=== PATIENT | female | born 1960 | race Caucasian/White ===

== ENCOUNTER 2024-08-31 10:25 | Emergency (ER) | payer OTHER, MEDICARE, SELFPAY ==
[2024-08-31 10:57] VITALS: BP 129/80
[2024-08-31 11:29] LABS: % Basophils 0.5 % (0-2); % Eosinophils 0.7 % (0-6); % Immature Granulocytes 0.3 % (0-0.5); % Lymphocytes 15.3 % (20.5-51.1); % Monocytes 6.9 % (1.7-9.3); % Neutrophils 76.3 % (42.2-75.2); Absolute Basophils 0.1 10^3/uL (0-0.2); Absolute Eosinophils 0.1 10^3/uL (0-0.7); Absolute Lymphocytes 1.6 10^3/uL (1.2-3.4); Absolute Monocytes 0.7 10^3/uL (0.1-0.6); Absolute Neutrophils 8.1 10^3/uL (1.4-6.5); Hematocrit 37.3 % (37.0-47.0); Hemoglobin 12.3 g/dL (12.0-16.0); Mean Corpuscular Hgb 29.9 pg (27.0-31.0); Mean Corpuscular Volume 90.5 fL (81.0-99.0); Mean Platelet Volume 10.4 fL (7.4-10.4); Nucleated Red Blood Cells % 0 %; Platelet Count 237 10^3/uL (130-400); Red Blood Cell Count 4.12 10^6/uL (4.20-5.40); Red Cell Dist. Width 13.2 % (11.5-14.5); White Blood Cell Count 10.7 10^3/uL (4.8-10.8)
[2024-08-31 11:44] LABS: ALT (SGPT) 27 U/L (0-35); AST (SGOT) 28 U/L (14-36); Albumin 4.2 g/dl (3.5-5.0); Alkaline Phosphatase 87 U/L (38-126); Blood Urea Nitrogen 40 mg/dl (7-17); Calcium 9.6 mg/dl (8.4-10.2); Carbon Dioxide 22 mmol/L (22-30); Chloride 108 mmol/L (98-107); Glucose 115 mg/dl (70-99); Potassium 4.7 mmol/L (3.5-5.1); Sodium 142 mmol/L (135-145); Total Bilirubin 0.2 mg/dl (0.2-1.3); Total Protein 6.4 g/dl (6.3-8.2); eGFR 38.43
--- NOTE | 2024-08-31 11:48 | ED.GENMED ---
History of Present Illness
General
Chief Complaint: Abdominal Symptoms
Source: patient
Time Seen by Provider: 08/31/24 11:37
History of Present Illness
History of Present Illness:
64-year-old female with past medical history of asthma/chronic bronchitis, hyperlipidemia, GERD, schizophrenia/depression presenting to the emergency department for evaluation after she started to feel little bit nauseous earlier this morning, had a
coughing spell and then proceeded to cough/vomit up clear sputum like substance that was intermixed with small flecks of blood and continues to have some mild upper abdominal discomfort/soreness. Patient denies any history of similar but does note
a history of reflux for which she takes famotidine. Patient states that she is on a daily 325 mg of aspirin but she is denying any history of CVA, known coronary artery disease or bleeding/clotting disorders. Patient currently denying any chest
pain, shortness of breath, palpitations, diarrhea or bowel changes, melena or hematochezia, urinary symptoms or any other concerns. Social history was noted for drinking an alcoholic beverage 3 times a week stating she will often have just 1
beverage during those days. No known history of varices. She does reports she had an endoscopy maybe about 10 years or so ago due to a hiatal hernia and reflux.
Past History
Past History
ED Past Medical History: CHF, COPD, Hypercholesterolemia, Renal failure, Psychiatric (Schizophrenia) and Other (Orthostatic hypotension)
ED Past Surgical History: Appendectomy and Orthopedic
Social History
Tobacco: Former smoker
Alcohol: Occasional
Drug: None
Personal:
Living: with family
Family History
Family History: Other (father with renal failure and diabetes, mother with diabetes)
Review of Systems
Review of Systems
All Other Systems: ROS reviewed and negative except as documented in HPI and ROS
Phy Exam
Physical Exam
Physical Exam:
GENERAL: Alert , in no apparent distress
EYE: clear conjunctiva b/l
HEAD: NCAT
ENT: o/p clr, mmm.
CARDIAC: Regular rate and rhythm .
LUNGS: Clear breath sounds bilaterally, no acute respiratory distress, no wheezes/rales/rhonchi
ABDOMEN: Soft, mild generalized upper abdominal tenderness to palpation, no r/g, no cvat, negative Sharma sign, no tenderness at McBurney's point
NEUROLOGICAL: Alert and oriented
SKIN: Warm and dry, skin intact.
MUSCULOSKELETAL: No edema, well perfused.
PSYCH: Normal and appropriate interaction.
Scores
Heart Failure Risk
Heart Failure Risk Score: Not Applicable
Heart Score for Chest Pain Patients
STEMI patient?: Not applicable
Withdrawal Assessment of Alcohol
Withdrawal Assessment Completed?: Not applicable
Course
Orders/Labs/Results
Orders:
Orders
08/31/24 11:05
Complete Blood Count/With Diff Urgent
Comprehensive Metabolic Panel Urgent
08/31/24 11:47
0.9% Sodium Chloride 1000 ml [Nss] 1,000 ml IV BOLUS
Famotidine [Pepcid] 20 mg IV NOW STA
Ondansetron Injectable [Zofran] 4 mg IV NOW STA
08/31/24 11:48
CR Chest - 2 Views Urgent
Comment:
Reason For Exam: vomiting/cough, small hematemesis
08/31/24 12:20
Protime/PTT Urgent
Comment: PREVIOUS QNS
Abnormal Lab Results
08/31/24
11:05
RBC 4.12 L 10^6/uL
(4.20-5.40)
Absolute Neuts (auto) 8.1 H 10^3/uL
(1.4-6.5)
Absolute Monos (auto) 0.7 H 10^3/uL
(0.1-0.6)
Neutrophils % 76.3 H %
(42.2-75.2)
Lymphocytes % 15.3 L %
(20.5-51.1)
Chloride 108 H mmol/L
(98-107)
BUN 40 H mg/dl
(7-17)
Creatinine 1.5 H mg/dL
(0.6-1.0)
Glucose 115 H mg/dl
(70-99)
08/31/24 11:05
08/31/24 11:05
Vital Signs
Initial and Last Documented VS:
Initial Vital Signs
Temp Pulse Resp BP Pulse Ox
97.9 F 90 18 129/80 98
08/31/24 10:57 08/31/24 10:57 08/31/24 10:57 08/31/24 10:57 08/31/24 10:57
Last Documented Vital Signs
Temp Pulse Resp BP Pulse Ox
97.9 F 88 16 145/83 98
08/31/24 10:57 08/31/24 13:42 08/31/24 13:42 08/31/24 13:42 08/31/24 13:42
MDM/Problems Addressed
Differential Diagnosis Includes:
GERD/gastritis, alcoholic gastritis, less concern for varices but certainly considered given patient's drinking history, infectious etiology such as pneumonia given patient's coughing, Boerhaave's, Anamika-Hill tear, anemia
MDM/Problems Addressed:
64-year-old female presenting to the ER for evaluation after she started feeling a little nauseous earlier today, had 1 episode of possible coughing/emesis and noted some small flecks of blood. Since that time no further vomiting. Denies any
melena or hematochezia. Does take a daily 325 mg of aspirin however unclear as to why patient is on this but states her secondary spanish teacher told her to take this but has no known history of coronary artery disease, stroke or other bleeding/clotting
disorder. Will check labs. Zofran, Pepcid and IV fluids ordered. Lab work was started upon arrival. Patient otherwise currently hemodynamically stable.
*Radiology
Radiology exam reviewed: radiology read reviewed
*Pulse Oximetry
Patient hypoxic: no
*Lyft Driver Interpretation
Rate: normal
Rhythm: sinus
*Critical Care Note
Total Time (30-74mins, 75-104mins- exclusive of procedures): Not Applicable
Data Reviewed
Review of Other/Old Records Reveals: Labs and Records
Source: patient and records
Patient Management
Escalation/DeEscalation of care consider admission/obs:
Patient remains hemodynamically stable and in no acute distress. No further episodes of coughing/vomiting here. Patient's labs noted to be unremarkable with no leukocytosis, no signs of anemia and stable chronic kidney disease. Patient's chest
x-ray also within normal limits. Possibility of GERD/gastritis for diagnosis. We did discuss brat diet as well as return precautions to the ER for any further episodes of hematemesis or any signs of potential lower GI bleeding including dark/black
stools or melena. Patient will follow-up with primary care provider. Aware of return precautions to the ER.
ED Attending Note
-
Portions of this chart may have been created with voice recognition software.� Occasional wrong word or��sound alike� substitutions may have occurred due to the inherent limitations of voice recognition software.
Discharge Plan
Departure
Patient Disposition: Home (Routine Discharge)
Date of Disposition: 08/31/24
Time of Disposition: 14:08
Patient with high blood pressure during this ER visit?: No
Discharge Problem:
Hematemesis
Instructions: Nausea and vomiting in adults
Prescriptions:
New
ondansetron 4 mg tablet,disintegrating
4 mg PO Q8H PRN (Reason: nausea and vomiting) Qty: 8 0RF
No Action
aspirin 325 MG tablet
325 mg PO DAILY
oxcarbazepine 300 MG tablet
600 mg PO HS
simvastatin 40 MG tablet
40 mg PO DAILY
citalopram 20 MG tablet
20 mg PO DAILY
montelukast 10 MG tablet
10 mg PO HS
albuterol sulfate 1 PUFF HFA aerosol inhaler
2 puff inhalation R QID
fluticasone propion-salmeterol [Advair Diskus] 1 EACH blister with device
1 ea IH BID
famotidine 20 MG tablet
20 mg PO DAILY
midodrine 5 MG tablet
5 mg PO TID@0800,1300,1800
ipratropium-albuterol 3 ML solution for nebulization
3 ml inhalation QIDPRN PRN (Reason: shortness of breath) Qty: 120 0RF
acetaminophen [Tylenol Extra Strength] 500 MG tablet
1,000 mg PO Q8
risperidone 2 MG tablet
2 mg PO BID
meclizine 25 MG tablet
25 mg PO PRN PRN (Reason: pain)
conjugated estrogens [Premarin] 0.625 MG tablet
0.625 mg .Route WEEKLY
benztropine 1 MG tablet
1 mg PO DAILY
oxycodone 5 MG tablet
5 mg PO PRN PRN (Reason: pain)
Montelukast Sodium 10 MG Tablet
10 mg PO HS
Zyrtec
10 mg PO DAILY
gabapentin 100 mg capsule
100 mg PO TID Qty: 30 0RF
Referrals:
Karin Coleman CRNP [Family Provider] -
Interventions
Interventions:
*Risk Screen - Suicide Last Done: 08/31/24 10:54
*General Assessment Last Done: 08/31/24 10:54
*ED COVID-19 Vaccine History Last Done: 08/31/24 10:54
*Nursing Disposition Last Done: 08/31/24 14:33
KP-Qammuy-Pdljqfsueg Assessment Last Done: 08/31/24 12:15
Discharge Date and Time
Discharge Date/Time: 08/31/24 14:33
Print Language: UZBEK
[2024-08-31 12:15] VITALS: BMI 25.2
[2024-08-31] MEDS: PEPCID 20 MG IV (12:19)
[2024-08-31] MEDS: NSS 1000 IV (12:19)
[2024-08-31] MEDS: ZOFRAN 4 MG IV (12:19)
[2024-08-31 12:38] LABS: INR 1.04; PT 13.9 Sec (11.4-14.6)
[2024-08-31 12:39] LABS: APTT 25.8 Sec (23.4-35.0)
[2024-08-31 13:42] VITALS: BP 145/83
== END 2024-08-31 14:33 | disposition home or self-care (01) ==
LOC: EMR 10:25
PROVIDERS: Emergency Medicine; EMERGENCY PHYSICIAN Emergency Medicine; FAMILY PHYSICIAN Nurse Practitioner
DX: K92.0 Hematemesis (principal); J44.89 Other specified chronic obstructive pulmonary disease; E78.00 Pure hypercholesterolemia, unspecified; I50.9 Heart failure, unspecified; K21.9 Gastro-esophageal reflux disease without esophagitis; N18.9 Chronic kidney disease, unspecified; Z87.891 Personal history of nicotine dependence; Z79.899 Other long term (current) drug therapy
CPT/HCPCS: 99284; 96374; 96375; 96361; 71046; 80053; 85025; 85610; 85730

== ENCOUNTER 2025-05-05 17:59 | Observation (INO) | payer OTHER, MEDICARE, SELFPAY ==
[2025-05-05] VITALS (8 sets, daily range): BP systolic 103–121; BP diastolic 61–74; BMI 22.0; BMI 21.8
--- NOTE | 2025-05-05 15:27 | ED.GENMED ---
History of Present Illness
General
Chief Complaint: Change in Mental Status
Source: patient and spouse
Exam Limitations: none
Time Seen by Provider: 05/05/25 15:20
History of Present Illness
History of Present Illness:
See MDM
Past History
Past History
ED Past Medical History: CHF, COPD, Hypercholesterolemia, Renal failure, Psychiatric (Schizophrenia) and Other (Orthostatic hypotension)
ED Past Surgical History: Appendectomy and Orthopedic
Social History
Tobacco: Former smoker
Alcohol: Occasional
Drug: None
Personal:
Living: with family
Family History
Family History: Other (father with renal failure and diabetes, mother with diabetes)
Phy Exam
Physical Exam
Physical Exam:
See MDM
NIH Stroke Score
Level of Consciousness: 0 - Alert
LOC questions: 0-Answers both correctly
LOC Commands: 0-Performs both correctly
Best Gaze: 0-Normal
Visual Reza: 0=Normal, no visual loss
Facial palsy: 0=Normal, symmetrical
Motor - Right Arm: 0=No drift 10 seconds
Motor - Left Arm: 0=No drift 10 seconds
Motor - Right Le-No drift 5 seconds
Motor - Left Le-No drift 5 seconds
Limb Ataxia: 0-Absent
Sensation: 0-Normal
Best Language: 0-No aphasia
Dysarthria: 0-Normal
Extinction and Inattention: 0-No abnormality
Total Score:: 0
Sepsis
Sepsis Screening
Sepsis Assessment: Sepsis Ruled Out
Sepsis Screen
Sepsis Screen: Sepsis Ruled Out
Date: 05/05/25
Time: 16:23
Course
Orders/Labs/Results
Orders:
Orders
05/05/25 15:26
CT Head W/o Iv Contrast Urgent
Comment:
Reason For Exam: espresive aphasia
0.9% Sodium Chloride 1000 ml [Nss] 1,000 ml IV BOLUS
Acetaminophen [Tylenol] 1,000 mg PO NOW STA
CR Chest - 2 Views Urgent
Comment:
Reason For Exam: fever and cough
05/05/25 15:37
CBC/With Diff [Complete Blood Count/With Diff] Urgent
COVID-19 Antigen Urgent
Source: Nasal Swab
Comprehensive Metabolic Panel Urgent
Lactic Acid Q4H
Comment: CANCEL 2nd LACTIC ACID IF 1st LACTIC ACID IS LESS THAN 2
Blood Culture Q30M
GINA Source: Blood/Venous
Specimen Description:
Influenza A+B Rapid Molecular Urgent
GINA Source: Nasal Swab
Specimen Description:
05/05/25 15:55
Urinalysis Reflex To Culture Urgent
Date Specimen was Collected: 05/05/25
Time Specimen was Collected: 15:48
Urine Microscopic Reflex Cult Urgent
Blood Culture Q30M
GINA Source: Blood/Venous
Specimen Description:
Urine Culture Urgent
GINA Source: U
Specimen Description:
Date Specimen was Collected: 05/05/25
Time Specimen was Collected: 15:48
05/05/25 19:30
Lactic Acid Q4H
Comment: CANCEL 2nd LACTIC ACID IF 1st LACTIC ACID IS LESS THAN 2
Abnormal Lab Results
05/05/25 05/05/25
15:37 15:55
WBC 12.7 H 10^3/uL
(4.8-10.8)
RBC 3.91 L 10^6/uL
(4.20-5.40)
Hgb 11.5 L g/dL
(12.0-16.0)
Hct 35.2 L %
(37.0-47.0)
MCHC 32.7 L g/dL
(33.0-37.0)
MPV 10.6 H fL
(7.4-10.4)
Absolute Neuts (auto) 10.3 H 10^3/uL
(1.4-6.5)
Absolute Monos (auto) 1.2 H 10^3/uL
(0.1-0.6)
Neutrophils % 81.0 H %
(42.2-75.2)
Lymphocytes % 9.4 L %
(20.5-51.1)
BUN 24 H mg/dl
(7-17)
Creatinine 1.6 H mg/dL
(0.6-1.0)
Glucose 107 H mg/dl
(70-99)
Total Protein 6.2 L g/dl
(6.3-8.2)
Urine Ketones 1+ A
(Negative)
Ur Occult Blood Reflex 1+ A
(Negative)
Urine Bilirubin 1+ A
(Negative)
Leukocyte Esterase Rfl 1+ A
(Negative)
Urine WBC (Reflex) 16-20 A /HPF
(0-5)
Urine Bacteria (Reflex) Few A
(Negative)
Urine Albumin (Reflex) 3+ A
(Neg - Trace)
SARS-CoV-2 Antigen Positive A
(Negative)
05/05/25 15:37
05/05/25 15:37
Vital Signs
Initial and Last Documented VS:
Initial Vital Signs
Temp Pulse Resp BP Pulse Ox
100 F 101 16 103/66 93
05/05/25 14:06 05/05/25 14:06 05/05/25 14:06 05/05/25 14:06 05/05/25 14:06
Last Documented Vital Signs
Temp Pulse Resp BP Pulse Ox
99.9 F 91 25 116/70 97
05/05/25 15:13 05/05/25 16:00 05/05/25 16:00 05/05/25 16:00 05/05/25 16:00
MDM/Problems Addressed
Differential Diagnosis Includes:
Note:
CHIEF COMPLAINT(S)
The patient reports feeling out of it, with symptoms of confusion, weakness, fever, and difficulty speaking.
HISTORY OF PRESENT ILLNESS
The patient is a 65-year-old female experiencing feelings of confusion and weakness that began in the middle of the night. She noticed the symptoms upon waking and needed to go to the bathroom, which she normally does not have difficulty with. She
reports that both confusion and weakness are new developments. The patient also reports a mild cough and has experienced a fever, with temperatures as high as 101�F, starting yesterday. She has taken acetaminophen (Tylenol) twice today to manage the
fever.
This morning, the patient started having trouble speaking and getting words out. This difficulty was more apparent and easier to identify this morning, around 8 or 9 AM. Although there has been slight improvement, there is still concern over these
symptoms. The patient denies any recent changes in urinary frequency or any issues while urinating.
The patient has a history of chronic kidney disease, which is considered in the management plan to avoid further renal damage from potential dehydration due to fever.
PAST MEDICAL AND SURIGICAL HISTORY
The patient has a history of chronic kidney disease.
PHYSICAL EXAM
General: Alert, no acute distress.
Skin: Warm
Head: Normocephalic, atraumatic
Neck: Appears supple, trachea midline.
Eyes, Ears, Nose, Mouth, and Throat: Dry mucous membranes. Posterior pharynx clear
Cardiovascular: No signs of cyanosis. Regular rate and rhythm
Respiratory: Respirations are non-labored. Lungs appear clear
Abdomen: Non-distended and nontender
Musculoskeletal: No deformities
Neurological: No focal neurological deficit observed.
Psychiatric: Cooperative, appropriate mood and affect.
PLAN
- Initiate blood work including lactate levels and blood cultures.
- Perform imaging studies including a CT scan of the head to rule out cerebrovascular accidents.
- Monitor and manage chronic kidney disease, especially in light of current fever and potential dehydration risks.
- Consider overnight observation to further assess and manage fever and symptoms.
- Administer IV fluids as needed to address dehydration.
- Re-evaluation after blood work and imaging to determine further management.
DIFFERENTIAL DIAGNOSIS
The Differential Diagnosis includes, in no particular order and is not limited to:
1. Transient Ischemic Attack
2. Stroke
3. Urinary Tract Infection
4. Pneumonia
5. Influenza
6. COVID-19
7. Dehydration
8. Sepsis
9. Acute Renal Failure
10. Delirium
05/05/25 - 16:00
Patient tested positive for COVID-19, correlating with current symptoms.
SUMMARY OF ENCOUNTER
The patient, a 65-year-old female, presented to the emergency department with symptoms of confusion, weakness, fever, and difficulty speaking. She reported these symptoms began in the middle of the night, including a fever of 101�F, mild cough, and
new onset difficulty with speech and weakness. She also indicated feeling 'out of it.' Blood work, including lactate levels and blood cultures, was initiated, and a CT scan of the head was performed to rule out cerebrovascular accidents. Chest X-ray
and COVID-19 testing were also conducted. The patient was administered IV fluids due to potential dehydration and chronic kidney disease.
DISPOSITION
Admit
ASSESSMENT
The patient tested positive for COVID-19, which correlates with her current symptoms of fever, cough, and weakness. The absence of acute intracranial pathology on CT scan and a clear chest x-ray largely rules out pneumonia and stroke as primary
concerns. Continued monitoring and treatment in a hospital setting for [id number] symptoms and dehydration risk are warranted.
PLAN
The patient will be admitted for IV fluids and further workup to manage her symptoms, particularly due to her inability to properly tolerate oral intake and manage fever. Monitoring of kidney function and symptoms of dehydration will be a priority
due to her chronic kidney disease.
INDEPENDENT REVIEW OF LABS AND INTERPRETATION OF TESTS
- My independent review of the CT head is negative for acute abnormalities.
- My independent review of chest x-ray is that it appears clear.
- My independent review indicates a positive COVID-19 test result.
MEDICATION RECONCILIATION
- The patient received IV fluids in the emergency department to address dehydration.
MEDICAL DECISION MAKING
- Complexity of Data Reviewed: Chronic conditions affecting care include chronic kidney disease. Differential diagnosis includes transient ischemic attack, stroke, urinary tract infection, pneumonia, influenza, COVID-19, dehydration, sepsis, acute
renal failure, and delirium.
- Data:
- Category 1: Tests ordered and reviewed include blood work (lactate levels, blood cultures) and imaging (CT head, chest x-ray).
- Category 2: N/A
- Category 3: Discussion of management with admitting hospital staff, leading to the decision for patient admission.
DIAGNOSIS
- COVID-19 Infection: U07.1
- Dehydration: E86.0
*Pulse Oximetry
SaO2: 97
Oxygen Mode of Delivery: Room air
Patient hypoxic: no
*Critical Care Note
Total Time (30-74mins, 75-104mins- exclusive of procedures): Not Applicable
ED Attending Note
-
Portions of this chart may have been created with voice recognition software.� Occasional wrong word or��sound alike� substitutions may have occurred due to the inherent limitations of voice recognition software.
Discharge Plan
Departure
Patient Disposition: Admit
Date of Disposition: 05/05/25
Time of Disposition: 17:23
Admit to: Med/Surg
Presentation/result/management discussed w/ accepting MD/DO: Hospitalist
Discharge Problem:
COVID, Acute dehydration
Prescriptions:
No Action
aspirin 325 MG tablet
325 mg PO DAILY
oxcarbazepine 300 MG tablet
600 mg PO HS
simvastatin 40 MG tablet
40 mg PO DAILY
citalopram 20 MG tablet
20 mg PO DAILY
montelukast 10 MG tablet
10 mg PO HS
albuterol sulfate 1 PUFF HFA aerosol inhaler
2 puff inhalation R QID
fluticasone propion-salmeterol [Advair Diskus] 1 EACH blister with device
1 ea IH BID
famotidine 20 MG tablet
20 mg PO DAILY
midodrine 5 MG tablet
5 mg PO TID@0800,1300,1800
ipratropium-albuterol 3 ML solution for nebulization
3 ml inhalation QIDPRN PRN (Reason: shortness of breath) Qty: 120 0RF
acetaminophen [Tylenol Extra Strength] 500 MG tablet
1,000 mg PO Q8
risperidone 2 MG tablet
2 mg PO BID
meclizine 25 MG tablet
25 mg PO PRN PRN (Reason: pain)
conjugated estrogens [Premarin] 0.625 MG tablet
0.625 mg .Route WEEKLY
benztropine 1 MG tablet
1 mg PO DAILY
oxycodone 5 MG tablet
5 mg PO PRN PRN (Reason: pain)
Montelukast Sodium 10 MG Tablet
10 mg PO HS
Zyrtec
10 mg PO DAILY
gabapentin 100 mg capsule
100 mg PO TID Qty: 30 0RF
ondansetron 4 mg tablet,disintegrating
4 mg PO Q8H PRN (Reason: nausea and vomiting) Qty: 8 0RF
Referrals:
Karin Coleman CRNP [Family Provider, General]
Interventions
Interventions:
*Risk Screen - Suicide Last Done: 05/05/25 14:06
*General Assessment Last Done: 05/05/25 15:13
*Neglect/Abuse Screening Last Done: 05/05/25 14:06
*ED- Fall Risk Assessment Last Done: 05/05/25 15:13
*ED COVID-19 Vaccine History Last Done: 05/05/25 15:13
ED- Pulmonary Assessment Last Done: 05/05/25 16:05
ED- Neurological Assessment Last Done: 05/05/25 15:13
ED Swallowing Screen Last Done: 05/05/25 15:19
Discharge Date and Time
Print Language: PORTUGUESE
[2025-05-05] MEDS: NSS 1000 IV ×2 (15:48→19:56)
[2025-05-05 15:49] LABS: Hematocrit 35.2 % (37.0-47.0); Hemoglobin 11.5 g/dL (12.0-16.0); Mean Corp Hgb Conc. 32.7 g/dL (33.0-37.0); Mean Corpuscular Volume 90.0 fL (81.0-99.0); Nucleated Red Blood Cells % 0 %; Platelet Count 198 10^3/uL (130-400); Red Cell Dist. Width 13.2 % (11.5-14.5)
[2025-05-05 15:56] LABS: COVID-19 Antigen Positive (Negative)
[2025-05-05] MEDS: TYLENOL 1000 MG PO (15:59)
[2025-05-05 16:10] LABS: Urine Character Clear (Clear)
[2025-05-05 16:12] LABS: ALT (SGPT) 30 U/L (0-35); AST (SGOT) 32 U/L (14-36); Albumin 4.0 g/dl (3.5-5.0); Alkaline Phosphatase 83 U/L (38-126); Blood Urea Nitrogen 24 mg/dl (7-17); Calcium 9.0 mg/dl (8.4-10.2); Carbon Dioxide 28 mmol/L (22-30); Chloride 104 mmol/L (98-107); Estimated Creatinine Clearance 36 ml/min; Glucose 107 mg/dl (70-99); Potassium 3.9 mmol/L (3.5-5.1); Sodium 138 mmol/L (135-145); Total Protein 6.2 g/dl (6.3-8.2); eGFR 35.35
[2025-05-05 16:25] LABS: Urine Squamous Cell 26-30 /LPF (Few)
[2025-05-05 16:26] LABS: Urine Red Blood Cell 0-2 /HPF (0-2); Urine Urothelial Cell 0-2 /LPF (FEW); Urine White Cell 16-20 /HPF (0-5)
--- NOTE | 2025-05-05 17:30 | HPS.HSE ---
Family Physician
-
Family Physician: VIOLETTA Klein
Chief Complaint
-
Mental status changes and fever
History of Present Illness
Patient 65-year-old female with multiple comorbidities came into the hospital mental status changes. Patient has not been feeling well for the last couple of days and last night she started having confusion and generalized weakness. She has been
having some dry cough and some shortness of breath. She had a fever up to 101 Fahrenheit. She has some trouble with getting words out earlier this morning around 8 AM this morning but feels better now. Denies focal weakness or paresthesias at the
moment. Denies seizure-like activity. Denies chest pain. Denies dysuria urgency or frequency. Denies nausea vomiting or diarrhea. In the ER she was noted to be COVID-[address] of the head unremarkable. She has some leukocytosis and
worsening of creatinine and she was referred to hospitalist service for further evaluation.
Medical History
Past Medical History
Past Medical History: Reports Other (Hypertension, hyperlipidemia, CKD, schizophrenia, orthostatic hypotension, COPD.)
Past Surgical History: Reports None
Social History
Tobacco: Former Smoker
Alcohol: None
Drug: None
Family History
Family History: Not pertinent
Allergies / Home Medications
Allergies reflects when Allergies were last updated in [facility].
Home Medications with original date entered in [facility]
Allergy/Medication List:
Allergies
Allergy/AdvReac Type Severity Reaction Status Date / Time
fluoxetine (From Prozac) Allergy Vomiting Verified 05/05/25 14:03
scallops Allergy Unknown Verified 05/05/25 14:03
Home Medications
albuterol sulfate 90 mcg/actuation aerosol inhaler 2 puff inhalation R QID Lung/breathing issues 06/13/18
aspirin 325 mg tablet 325 mg PO DAILY Blood clot prevention/tx 06/13/18
citalopram 20 mg tablet 20 mg PO DAILY Depression 06/13/18
montelukast 10 mg tablet 10 mg PO HS Allergies 06/13/18
oxcarbazepine 300 mg tablet 600 mg PO HS Seizures 06/13/18
simvastatin 40 mg tablet 40 mg PO DAILY High cholesterol 06/13/18
famotidine 20 mg tablet 20 mg PO DAILY Gastrointestinal issue 10/18/18
fluticasone 250 mcg-salmeterol 50 mcg/dose blistr powdr for inhalation (Advair Diskus) 1 ea IH BID Lung/breathing issues 10/18/18
midodrine 5 mg tablet 5 mg PO TID@0800,1300,1800 Blood pressure 10/18/18
ipratropium 0.5 mg-albuterol 3 mg (2.5 mg base)/3 mL nebulization soln 3 ml inhalation QIDPRN PRN shortness of breath ##120 10/20/18
Montelukast Sodium 10 mg PO HS Allergies 03/03/22
Zyrtec 10 mg PO DAILY Allergies 03/03/22
acetaminophen 500 mg tablet (Tylenol Extra Strength) 1,000 mg PO Q8 Pain 03/03/22
benztropine 1 mg tablet 1 mg PO DAILY Neurological Condition 03/03/22
conjugated estrogens 0.625 mg tablet (Premarin) 0.625 mg .Route WEEKLY Hormonal agent 03/03/22
meclizine 25 mg tablet 25 mg PO PRN PRN pain 03/03/22
oxycodone 5 mg tablet 5 mg PO PRN PRN pain 03/03/22
risperidone 2 mg tablet 2 mg PO BID Mental Health/Anxiety 03/03/22
gabapentin 100 mg capsule 100 mg PO TID #30 caps 03/18/22
ondansetron 4 mg disintegrating tablet 4 mg PO Q8H PRN nausea and vomiting #8 tabs 08/31/24
Review of Systems
-
A 12 point ROS was completed and negative except as noted: Yes
Physical Exam
Vital Signs
Vital Signs
Temp Pulse Resp BP Pulse Ox
99.9 F 91 25 116/70 97
05/05/25 15:13 05/05/25 16:00 05/05/25 16:00 05/05/25 16:00 05/05/25 16:00
Physical exam:
General: Acutely ill
HEENT: Normocephalic, Atraumatic and dry mucous Membranes
Respiratory: Clear to Auscultation; Negative Wheezes, Rales or Rhonchi
Cardiac: Regular Rhythm and S1/S2
GI: Soft, Nontender and Nondistended
Musculoskeletal: No Clubbing, No Cyanosis and No Edema
Neuro: Awake, Alert and Oriented, no gross neurological deficit at the moment. Cranial nerves intact
Psych: Calm
Physical Exam
General: Other
Laboratory Results
-
05/05/25 15:37
05/05/25 15:37
Laboratory Results
Lactic Acid 1.0 mmol/L (0.7-2.0) 05/05/25 15:37
Total Bilirubin 0.5 mg/dl (0.2-1.3) 05/05/25 15:37
AST 32 U/L (14-36) 05/05/25 15:37
ALT 30 U/L (0-35) 05/05/25 15:37
Alkaline Phosphatase 83 U/L (38-126) 05/05/25 15:37
Data Reviewed
-
Diagnostic Radiology: Image Personally Visualized and interpreted
CT Scan: Image Personally Visualized and interpreted
Lab Data: Labs Reviewed by me
Impression/Plan
-
IMPRESSION:
Patient 65-year-old with multiple comorbidities came into the hospital with multiple symptoms likely related to COVID-19 acute viral infection.
PLAN:
COVID-19:
Supportive care
We discussed option of no treatment versus treatment with either Paxlovid or Molnupiravir. Patient tells me that she has been treated with Paxlovid in the past and she preferred to use this and we went over risk benefits.
Paxlovid renally dose if she is okay holding some of the medications needed to be on hold-will need to revisit this. At the moment I do not have accurate list of all her medications. She tells me family will bring over her list of medicines.
Bronchodilators as needed
Consider starting dexamethasone if hypoxic
Strokelike symptoms:
CT of the head unremarkable
Symptoms likely related to COVID-19 but if they persist would do MRI of the brain but does not seem to be necessary at the moment.
She would be out of time window for thrombolytics
VANDANA on CKD:
Gentle IV fluid
Avoid nephrotoxic
Monitor renal function in a.m.
COPD/asthma:
Bronchodilators as needed
Orthostatic hypotension:
Fluids
check orthostatic
Schizophrenia:
Monitor mental status and behavior
Restart her outpatient regimen once we know med rec
DVT prophylaxis:
Heparin SQ
CODE STATUS:
Full code
Time spent 75 minutes
--- NOTE | 2025-05-05 18:21 | CM ---
CM reviewed chart and met with pt bedside in ED. lives with her in 2 story home with basement, 2 [address]AR[address], first floor half BA, second floor BR/full BA, has stairglide.
Independent in ADLs, personal care and ambulation. No current assistive devices but has walker, commode, solution director martha and walk in tub.
HEALY reviewed and signed, copy given to patient.
Confirms prescription coverage.
No hx VN or SNF, hx acute rehab at [facility] [place] after hip replacement
PCP: Karin Coleman
Pharmacy: [facility], [facility] for specialty meds
CM will continue to follow for any discharge planning needs.
--- NOTE | 2025-05-05 19:45 | PTCARENOTE ---
Pt arrived from ED by stretcher. Pt ambulated from stretcher to bed. COVID-19 positive. AAOx3. VSS. Call chase within reach.
[2025-05-05] MEDS: PAXLOVID 150-100 MG DOSE PACK 1 DOSE PO (21:31)
--- NOTE | 2025-05-05 21:51 | PTCARENOTE ---
Pt was asking about home medications that were not given. Home medications were correct in chart, but not ordered in MAR. House provider was TT. See MAR for orders.
[2025-05-05] MEDS: CLOZARIL 100 MG PO (22:23)
[2025-05-05] MEDS: TRILEPTAL 600 MG PO (22:23)
[2025-05-05] MEDS: RISPERDAL 0.5 MG PO (22:27)
[2025-05-05] MEDS: DROXIDOPA 300 MG PO (22:46)
[2025-05-06] MEDS: HEPARIN SC (00:29)
[2025-05-06 06:54] LABS: Blood Urea Nitrogen 24 mg/dl (7-17); Calcium 8.2 mg/dl (8.4-10.2); Carbon Dioxide 25 mmol/L (22-30); Chloride 114 mmol/L (98-107); Estimated Creatinine Clearance 44 ml/min; Glucose 97 mg/dl (70-99); Potassium 3.6 mmol/L (3.5-5.1); Sodium 144 mmol/L (135-145); eGFR 45.35
[2025-05-06 07:00] VITALS: BP 134/79
[2025-05-06 07:31] LABS: Hematocrit 29.5 % (37.0-47.0); Hemoglobin 9.7 g/dL (12.0-16.0); Mean Corp Hgb Conc. 32.9 g/dL (33.0-37.0); Mean Corpuscular Volume 91.3 fL (81.0-99.0); Platelet Count 156 10^3/uL (130-400); Red Cell Dist. Width 13.3 % (11.5-14.5)
--- NOTE | 2025-05-06 08:33 | W.PN.HOSP.TC ---
Today's Communication/Plan
-
Discharge planning
Assessment / Plan
Assessment / Plan
Physical exam:
General: Well Developed, Well Nourished and No Apparent Distress
HEENT: Normocephalic, Atraumatic and Moist Mucous Membranes
Respiratory: Clear to Auscultation; Negative Wheezes, Rales or Rhonchi
Cardiac: Regular Rhythm and S1/S2
GI: Soft, Nontender and Nondistended
Musculoskeletal: No Clubbing, No Cyanosis and No Edema
Neuro: Awake, Alert and Oriented
Psych: Calm
A/P:
COVID-19:
Tolerated Paxlovid
Reviewed her home medications. Needs to hold fluticasone inhaler and simvastatin but can continue rest of medicines.
Discharge planning
Strokelike symptoms:
Related to COVID
CT of the head unremarkable
VANDANA on CKD:
Improved after IV fluids
COPD/asthma:
Bronchodilators as needed
Orthostatic hypotension:
Stable
Schizophrenia:
Restarted home regimen
DVT prophylaxis:
Heparin SQ
CODE STATUS:
Full code
Anticipated Discharge: Today
Subjective/Interval History
-
Date of Service: May 06, 2025
Patient feels better overall. Afebrile
Objective Data
-
Labs:
Laboratory Results
05/06/25
05:42
WBC 8.1
Hgb 9.7 L
Hct 29.5 L
Plt Count 156 D
Sodium 144
Potassium 3.6
Chloride 114 H
Carbon Dioxide 25
BUN 24 H
Creatinine 1.3 H
Glucose 97
Calcium 8.2 L
Vital Signs:
Vital Signs
Temp Pulse Resp BP Pulse Ox
97.6 F 84 18 134/79 97
05/06/25 07:00 05/06/25 07:00 05/06/25 07:00 05/06/25 07:00 05/06/25 07:00
I&O
05/05/25 05/06/25 05/07/25
06:59 06:59 06:59
Intake Total 1480 / 1480
Balance 1480 / 1480
[2025-05-06] MEDS: NSS 1000 IV (08:54)
[2025-05-06] MEDS: RISPERDAL 2 MG PO (08:56)
[2025-05-06] MEDS: CLOZARIL PO ×2 (08:56→09:17)
[2025-05-06] MEDS: HEPARIN 5000 UNITS SC (08:57)
--- NOTE | 2025-05-06 10:23 | PTCARENOTE ---
Patient OOb in room with a steady gait. Patient tolerating 50% of breakfast. Patient has no c/o pain. Pain feels much better and want to go home. Patient describes feeling weak and not able to think clearly yesterday. Today patient feels at baseline
with just a bit of tiredness.Spouse at bedside.
[2025-05-06] MEDS: PAXLOVID 150-100 MG DOSE PACK 1 DOSE PO (11:09)
[2025-05-06] MEDS: DROXIDOPA 300 MG PO (11:09)
[2025-05-06] MEDS: PROTONIX 20 MG PO (11:14)
--- NOTE | 2025-05-06 11:58 | W.DCSUMMARY ---
Discharge Summary
Discharge Data
Date of Admission: 05/05/25
Date of Discharge: 05/06/25
-
Pending Results: No
Hospital Course
Patient 65-year-old female with history of schizophrenia, dyslipidemia, depression, COPD/asthma, came into the hospital with constellation of symptoms related to COVID-19. Patient was treated with Paxlovid. She remained afebrile and on room air.
She did well rest of the hospital stay. We went over the details of all her medications and we also discussed with pharmacy since she has a long list and she needs to continue hold steroids inhalers and statins while she completes treatment with
Paxlovid. She had mild VANDANA and she received IV fluids and renal function improved back to her baseline. Her hemoglobin had a mild drift but she did not have any signs of bleeding and this is most likely a dilutional component. Otherwise, patient
is hemodynamically stable and afebrile and she is eager to go home today. She will be discharged in stable condition today.
Discharge Plan
-
Patient Disposition: Home (Routine Discharge)
Discharge Diagnosis/Procedures: Coronavirus 19 infection. Acute kidney injury. Anemia. History of schizophrenia. History of chronic obstructive pulmonary disease/asthma.
Diet: Low Cholesterol
Activity: As tolerated
Blood Work: Please PCP to order CBC, BMP within 1 week
Referrals:
Karin Coleman CRNP [Family Provider, General] - in less than 1 week
Prescriptions:
New
Paxlovid 150 mg (10)- 100 mg (10) Tablets,Dose Pack
1 ea PO BID 5 Days Qty: 10 0RF
Continued
oxcarbazepine 300 MG tablet
600 mg PO HS
montelukast 10 MG tablet
10 mg PO HS
albuterol sulfate 1 PUFF HFA aerosol inhaler
2 puff inhalation QIDPRN PRN (Reason: wheeze, SOB)
ipratropium-albuterol 3 ML solution for nebulization
3 ml inhalation QIDPRN PRN (Reason: shortness of breath) Qty: 120 0RF
cetirizine 10 mg Tablet
10 mg PO DAILY
clozapine 100 mg Tablet
400 mg PO HS
risperidone 2 mg Tablet
2 mg PO DAILY
bupropion HCl 75 mg Tablet
75 mg PO DAILY
fludrocortisone 0.1 mg Tablet
0.2 mg PO DAILY
risperidone 0.5 mg Tablet
0.5 mg PO HS
midodrine 10 mg Tablet
10 mg PO TID
bupropion HCl 300 mg Tablet Extended Release 24 Hr
300 mg PO DAILY
droxidopa 300 mg Capsule
300 mg PO TID@0800,1200,1700
pantoprazole 20 mg Tablet,Delayed Release (Dr/Ec)
20 mg PO DAILY
multivitamin Tablet
1 tab PO DAILY
famotidine 40 mg tablet
40 mg PO DAILY
cyanocobalamin (vitamin B-12) 1,000 mcg Tablet
1,000 mcg PO DAILY
melatonin 3 mg Tablet
3 mg PO HS PRN (Reason: insomnia)
calcium carbonate [Oyster Shell Calcium 500] 500 mg calcium (1,250 mg) tablet
1,000 mg PO DAILY
docusate sodium 100 mg Capsule
100 mg PO BID
ipratropium bromide 42 mcg (0.06 %) spray,non-aerosol
2 spray intranasal BID
cholecalciferol (vitamin D3) [Vitamin D3] 25 mcg (1,000 unit) tablet
25 mcg PO DAILY
estradiol 10 mcg tablet
10 mcg VAGINAL DIRECTED
Held
simvastatin 40 MG tablet
40 mg PO HS
Hold Instructions: Resume on 05/11/25.
fluticasone propion-salmeterol 500-50 mcg/dose blister with device
1 inh INHALATION Q12
Hold Instructions: Resume on 05/11/25.
Discharge Orders:
Discharge Patient (As Directed); Ordered 05/06/25
Ordered By: Prashant Robles
Discharge Date and Time
Discharge Date/Time: 05/06/25 14:13
Print Language: [place]
--- NOTE | 2025-05-06 12:42 | CM ---
Pt is cleared for discharge to home today. Pt will call her for transport home.
Plan: Discharge to home with no identified needs.
[2025-05-06 13:55] VITALS: BP 114/68
== END 2025-05-06 14:13 | disposition home or self-care (01) ==
LOC: 3 WEST ACU 17:59
PROVIDERS: ADMITTING PHYSICIAN Hospitalist; EMERGENCY PHYSICIAN Student in an Organized Health Care Education/Training Program; FAMILY PHYSICIAN Nurse Practitioner
DX: U07.1 COVID-19 (principal); E78.00 Pure hypercholesterolemia, unspecified; F20.9 Schizophrenia, unspecified; N18.9 Chronic kidney disease, unspecified; I13.0 Hypertensive heart and chronic kidney disease with heart failure and stage 1 through stage 4 chronic kidney disease, or unspecified chronic kidney disease; J44.89 Other specified chronic obstructive pulmonary disease; N17.9 Acute kidney failure, unspecified; I50.9 Heart failure, unspecified; I95.1 Orthostatic hypotension; E86.0 Dehydration; F32.A Depression, unspecified; R47.01 Aphasia; Z79.51 Long term (current) use of inhaled steroids; Z79.82 Long term (current) use of aspirin; Z79.891 Long term (current) use of opiate analgesic; Z79.899 Other long term (current) drug therapy; Z87.891 Personal history of nicotine dependence
CPT/HCPCS: 70450; 71046; 80048; 80053; 81003; 81015; 83605; 85025; 85027; 87040; 87086; 87502; 87811; 96360; 99285; G0378